=== PATIENT | male | born 1995 | race African-American/Black ===

== ENCOUNTER 2018-05-19 22:38 | Emergency (ER) | payer MEDICAID ==
[~2018-05-19] VITALS: Ht 198.1 cm; Wt 96.0 kg
[2018-05-20] MEDS ORDERED: IBUPROFEN 600MG TABLET PO ONE
[2018-05-20 04:43] VITALS: BP 135/79
== END 2018-05-20 06:00 | disposition home or self-care (01) ==
LOC: ER 23:03
DX: S80.02XA Contusion of left knee, initial encounter (principal); W01.0XXA Fall on same level from slipping, tripping and stumbling without subsequent striking against object, initial encounter; Y93.89 Activity, other specified; Y92.89 Other specified places as the place of occurrence of the external cause; F12.90 Cannabis use, unspecified, uncomplicated
CPT/HCPCS: 73562; 73700; 99284; L1830; Z7610

== ENCOUNTER 2018-12-19 23:54 | Emergency (ER) | payer MEDICAID ==
[~2018-12-19] VITALS: Ht 198.1 cm; Wt 100.0 kg
[2018-12-20 00:24] VITALS: BP 128/83
== END 2018-12-20 05:26 | disposition left against medical advice (07) ==
LOC: ER 23:54
DX: Z53.21 Procedure and treatment not carried out due to patient leaving prior to being seen by health care provider (principal)

== ENCOUNTER 2018-12-21 04:19 | Emergency (ER) | payer MEDICAID ==
[~2018-12-21] VITALS: Ht 198.1 cm; Wt 97.0 kg
[2018-12-21] MEDS ORDERED: KETOROLAC 60MG/2ML VIAL IM STA (05:04)
[2018-12-21] MEDS ORDERED: PENICILLIN G BENZATHINE 1,200,000 UNITS/2ML SYR IM ONE (06:45)
[2018-12-21 07:11] VITALS: BP 130/80
== END 2018-12-21 07:15 | disposition home or self-care (01) ==
LOC: ER 04:19
DX: J02.9 Acute pharyngitis, unspecified (principal); F17.210 Nicotine dependence, cigarettes, uncomplicated; F12.10 Cannabis abuse, uncomplicated; Z98.890 Other specified postprocedural states
CPT/HCPCS: 87070; 87430; 96372; 99283; J0561; J1885

== ENCOUNTER 2018-12-22 05:37 | Emergency (ER) | payer MEDICAID ==
[~2018-12-22] VITALS: Ht 188 cm; Wt 100.0 kg
[2018-12-22] MEDS ORDERED: DEXAMETHASONE 10 MG/ML VIAL IV ONE (07:00)
[2018-12-22] MEDS ORDERED: CLINDAMYCIN 600 MG in DEXTROSE 5% WATER 50 ML IV ONE (07:00)
[2018-12-22] MEDS ORDERED: KETOROLAC 30MG/ML VIAL IV ONE (07:00)
[2018-12-22] MEDS ORDERED: CLINDAMYCIN 600MG PREMIX 50 ML IV ONE (07:30)
[2018-12-22 07:52] LABS: BASOPHILS % 0.5 % (0.0-2.0); EOSINOPHILS % 0.9 % (0.0-5.0); HEMOGLOBIN. 14.7 g/dL (14.0-18.0); LYMPHOCYTES % 15.8 % (20.0-50.0); MEAN CORPUSCULAR HEMOGLOBIN 30.9 pg (28.0-32.0); MEAN CORPUSCULAR VOLUME 92.6 fL (80.0-94.0); MONOCYTES % 13.2 % (2.0-8.0); NEUTROPHILS % 69.6 % (40.0-76.0); PLATELET 379 x1000/uL (130-400); RED BLOOD CELL COUNT 4.76 mill/uL (4.7-6.1); RED CELL DISTRIBUTION WIDTH 13.7 % (11.6-14.6)
[2018-12-22 07:54] LABS: CHLORIDE 103 mEq/L (98-107)
[2018-12-22 08:20] LABS: INR 1.1; PROTHROMBIN TIME 10.9 sec (9.6-11.0)
[2018-12-22] MEDS ORDERED: IOHEXOL-300 100 ML BOTTLE ONE (08:32)
[2018-12-22] MEDS ORDERED: SODIUM CHLORIDE 0.9% 1,000 ML IV ONE (08:49)
[2018-12-22 08:58] LABS: MONOTEST NEGATIVE (NEGATIVE)
[2018-12-22 10:11] VITALS: BP 107/56
== END 2018-12-22 10:24 | disposition home or self-care (01) ==
LOC: ER 05:37
DX: J36 Peritonsillar abscess (principal); F12.10 Cannabis abuse, uncomplicated
CPT/HCPCS: 36415; 70491; 80048; 85025; 85610; 85730; 86308; 87040; 87070; 87430; 96365; 96375; 99284; J1100; J1885; J3490; J7030; Q9967; Z7610; J7060

== ENCOUNTER 2018-12-24 14:48 | Emergency (ER) | payer MEDICAID ==
[~2018-12-24] VITALS: Ht 198.1 cm; Wt 100.0 kg
[2018-12-24 14:57] VITALS: BP 147/86
== END 2018-12-24 18:33 | disposition left against medical advice (07) ==
LOC: ER 14:48
DX: R07.0 Pain in throat (principal); Z53.21 Procedure and treatment not carried out due to patient leaving prior to being seen by health care provider

== ENCOUNTER 2019-01-03 05:25 | Emergency (ER) | payer MEDICAID ==
[~2019-01-03] VITALS: Ht 200.7 cm; Wt 97.0 kg
[2019-01-03] MEDS ORDERED: TETANUS, DIPHTHERIA, PERTUSSIS VAC/PF 0.5ML (>7YR OLD) IM ONE (06:45)
[2019-01-03] MEDS ORDERED: AMOXICILLIN/POTASSIUM CLAVULANATE 875/125MG TAB PO ONE (06:45)
[2019-01-03] MEDS ORDERED: KETOROLAC 60MG/2ML VIAL IM ONE (06:45)
[2019-01-03 08:28] VITALS: BP 141/72
== END 2019-01-03 08:29 | disposition home or self-care (01) ==
LOC: ER 05:25
DX: S61.256A Open bite of right little finger without damage to nail, initial encounter (principal); L03.012 Cellulitis of left finger; F12.10 Cannabis abuse, uncomplicated; F17.200 Nicotine dependence, unspecified, uncomplicated; Z98.890 Other specified postprocedural states; Z91.041 Radiographic dye allergy status; Z59.0 Homelessness; W50.3XXA Accidental bite by another person, initial encounter; Y93.89 Activity, other specified; Y92.89 Other specified places as the place of occurrence of the external cause; Y99.8 Other external cause status
CPT/HCPCS: 73130; 90471; 90715; 96372; 99283; A4217; J1885

== ENCOUNTER 2019-08-14 07:00 | Emergency (ER) | payer MEDICAID ==
[~2019-08-14] VITALS: Ht 182.9 cm; Wt 91.0 kg
[2019-08-14 07:50] VITALS: BP 144/100
== END 2019-08-14 07:53 | disposition home or self-care (01) ==
LOC: ER 07:00
DX: S01.511A Laceration without foreign body of lip, initial encounter (principal); I10 Essential (primary) hypertension; F15.10 Other stimulant abuse, uncomplicated; F17.210 Nicotine dependence, cigarettes, uncomplicated; Z91.041 Radiographic dye allergy status; Z98.890 Other specified postprocedural states; W22.09XA Striking against other stationary object, initial encounter; Y93.89 Activity, other specified; Y92.488 Other paved roadways as the place of occurrence of the external cause
CPT/HCPCS: 99282

== ENCOUNTER 2019-08-29 17:21 | Emergency (ER) | payer MEDICAID ==
[~2019-08-29] VITALS: Ht 182.9 cm; Wt 75.0 kg
[2019-08-29] MEDS ORDERED: MORPHINE SULFATE 4 MG/ML CPJ (NOT FOR IM USE) IV STA (18:37)
[2019-08-29] MEDS ORDERED: KETOROLAC 30MG/ML VIAL IV STA (18:37)
[2019-08-29] MEDS ORDERED: SODIUM CHLORIDE 0.9% 1,000 ML IV ONE (18:37)
[2019-08-29 19:06] LABS: BASOPHILS % 0.7 % (0.0-2.0); EOSINOPHILS % 0.2 % (0.0-5.0); HEMATOCRIT. 46.1 % (42.0-52.0); HEMOGLOBIN. 15.4 g/dL (14.0-18.0); LYMPHOCYTES % 20.7 % (20.0-50.0); MEAN CORPUSCULAR HEMOGLOBIN 31.1 pg (28.0-32.0); MEAN CORPUSCULAR VOLUME 92.6 fL (80.0-94.0); MONOCYTES % 10.8 % (2.0-8.0); NEUTROPHILS % 67.6 % (40.0-76.0); PLATELET 368 x1000/uL (130-400); RED BLOOD CELL COUNT 4.97 mill/uL (4.7-6.1); RED CELL DISTRIBUTION WIDTH 13.3 % (11.6-14.6)
[2019-08-29 19:09] LABS: INR 1.1; PROTHROMBIN TIME 10.9 sec (9.6-11.0)
[2019-08-29 19:11] LABS: CHLORIDE 105 mEq/L (98-107)
[2019-08-29] MEDS ORDERED: CEFAZOLIN 1000MG PREMIX 50 ML IV ONE (19:15)
[2019-08-29] MEDS ORDERED: TETANUS, DIPHTHERIA, PERTUSSIS VAC/PF 0.5ML (>7YR OLD) IM ONE (19:15)
[2019-08-29] MEDS ORDERED: ONDANSETRON HCL 4MG/2ML INJ IV ONE (20:15)
[2019-08-29] MEDS ORDERED: ETOMIDATE 2MG/ML 10ML VIAL IV ONE (20:15)
[2019-08-29] MEDS ORDERED: MORPHINE SULFATE 10 MG/ML CPJ IV ONE (20:15)
[2019-08-29] MEDS ORDERED: HALOPERIDOL LACTATE 5MG/ML VIAL IM ONE (20:30)
[2019-08-30] MEDS ORDERED: MORPHINE SULFATE 4 MG/ML CPJ (NOT FOR IM USE) IV ONE ×2 (16:45→20:30)
[2019-08-30] MEDS: QUETIAPINE FUMARATE 50MG TABLET PO SCH (20:49)
[2019-08-31] MEDS ORDERED: CEFAZOLIN 1000MG PREMIX 50 ML IV ONE (03:00)
[2019-08-31] MEDS: QUETIAPINE FUMARATE 50MG TABLET PO SCH (09:00)
[2019-08-31 15:36] VITALS: BP 150/96
== END 2019-08-31 15:45 | disposition short-term general hospital (02) ==
LOC: ER 17:21
DX: S52.602B Unspecified fracture of lower end of left ulna, initial encounter for open fracture type I or II (principal); S52.502B Unspecified fracture of the lower end of left radius, initial encounter for open fracture type I or II; I10 Essential (primary) hypertension; F12.10 Cannabis abuse, uncomplicated; F15.10 Other stimulant abuse, uncomplicated; F17.290 Nicotine dependence, other tobacco product, uncomplicated; Z91.041 Radiographic dye allergy status; V00.131A Fall from skateboard, initial encounter; Y93.51 Activity, roller skating (inline) and skateboarding; Y92.89 Other specified places as the place of occurrence of the external cause; Y99.8 Other external cause status
CPT/HCPCS: 25605; 36415; 73070; 73090; 73100; 80053; 83690; 85025; 85610; 90471; 90715; 96365; 96366; 96372; 96375; 96376; 99152; 99285; 99406; J0690; J1630; J1885; J2270; J2405; J3490; J7030; Z7610

== ENCOUNTER 2020-01-30 20:44 | Emergency (ER) | payer MEDICAID, OTHER ==
[~2020-01-30] VITALS: Ht 188 cm; Wt 82.0 kg
[2020-01-30] MEDS ORDERED: IBUPROFEN 600MG TABLET PO ONE (22:15)
[2020-01-30 23:02] VITALS: BP 145/87
== END 2020-01-30 23:03 | disposition home or self-care (01) ==
LOC: ER 20:44
DX: S60.222A Contusion of left hand, initial encounter (principal); S60.221A Contusion of right hand, initial encounter; W22.8XXA Striking against or struck by other objects, initial encounter; Y93.89 Activity, other specified; Y92.89 Other specified places as the place of occurrence of the external cause; Y99.8 Other external cause status; F41.9 Anxiety disorder, unspecified; F14.10 Cocaine abuse, uncomplicated; F12.10 Cannabis abuse, uncomplicated; Z91.041 Radiographic dye allergy status
CPT/HCPCS: 73130; 99283

== ENCOUNTER 2021-04-01 20:00 | Emergency (ER) | payer MEDICAID, OTHER ==
[~2021-04-01] VITALS: Ht 200.7 cm; Wt 87.0 kg
[2021-04-01] MEDS ORDERED: OLANZAPINE 10MG TABLET PO SCH (21:30)
[2021-04-01] MEDS ORDERED: OLAN10TA3 MT (21:45)
[2021-04-01 21:59] VITALS: BP 128/73
== END 2021-04-01 22:00 | disposition home or self-care (01) ==
LOC: ER 20:00
DX: F20.9 Schizophrenia, unspecified (principal); F41.9 Anxiety disorder, unspecified; F14.10 Cocaine abuse, uncomplicated; F12.10 Cannabis abuse, uncomplicated
CPT/HCPCS: 99283

== ENCOUNTER 2022-09-20 13:24 | Emergency (ER) | payer OTHER ==
[~2022-09-20] VITALS: Ht 198.1 cm; Wt 102.0 kg
[~2022-09-20 13:24] MED LIST: OLAN10TA3 MT
[2022-09-20 14:19] VITALS: BP 117/64
== END 2022-09-20 21:04 | disposition left against medical advice (07) ==
LOC: ER 13:24
DX: Z53.21 Procedure and treatment not carried out due to patient leaving prior to being seen by health care provider (principal)

== ENCOUNTER 2023-04-22 23:10 | Emergency (ER) | payer OTHER ==
[~2023-04-22] VITALS: Ht 198.1 cm; Wt 99.0 kg
[2023-04-22 23:19] VITALS: BP 112/79; PULSE 110; RESP 18; TEMP 98.6; O2SAT 100
[2023-04-23] MEDS ORDERED: LIDOCAINE HCL/PF 1% 10 MG/ML 5ML VIAL INFIL ONE (02:00)
[2023-04-23] MEDS ORDERED: BACITRACIN ZINC OINT UDPKT TOP ONE (02:00)
== END 2023-04-23 03:51 | disposition home or self-care (01) ==
LOC: ER 23:10
DX: S01.81XA Laceration without foreign body of other part of head, initial encounter (principal); F41.9 Anxiety disorder, unspecified; F14.10 Cocaine abuse, uncomplicated; F12.10 Cannabis abuse, uncomplicated; V00.131A Fall from skateboard, initial encounter; Y93.89 Activity, other specified; Y92.89 Other specified places as the place of occurrence of the external cause; Y99.8 Other external cause status
CPT/HCPCS: 12011; 99282; J3490; Z7610 ×2